=== PATIENT | male | born 1965 | race Caucasian/White ===

== ENCOUNTER 2021-05-30 12:57 | Day surgery (SDC) | payer BC ==
[~2021-05-30] VITALS: Ht 190.5 cm; Wt 115.7 kg
[2021-05-30] MEDS ORDERED: ATORVASTATIN CA40 MG PO (13:17)
[2021-05-30] MEDS ORDERED: FENOFIBRATE160 MG PO (13:18)
[2021-05-30] MEDS ORDERED: MULTI VITAMIN1 EACH PO (13:18)
[2021-05-30] MEDS ORDERED: D3-200050 MCG PO (13:18)
--- NOTE | 2021-05-30 15:42 | NUR ---
05/30/21 1542 Alexandra Cabrera 1537 PATIENT ARRIVES TO PACU AWAKE BUT DROWSY. RESP EVEN AND UNLABORED, NC AT 2 LITERS, SATS >92%. OXYGEN TURNED OFF. PATIENT RESTING QUIETLY WITH EYES CLOSED WHEN NOT STIMULATED.
--- NOTE | 2021-06-03 09:47 | PATH ---
[facility] [address] [place], [place] [address] Signed SPECIMEN(S): A COLON POLYP AT 60 CM SPECIMEN SOURCE: A. COLON POLYP AT 60 CM CLINICAL HISTORY: Screening. Post op: Polyp. MICROSCOPIC DESCRIPTION: Histologic sections of all submitted blocks are examined by light microscopy. These findings, together with the gross examination, support the pathologic diagnosis. FINAL PATHOLOGIC DIAGNOSIS: Colon, polyp at 60 cm, polypectomy: - Tubular adenoma. - Negative for high-grade dysplasia or malignancy. NAL:caw:C2NR GROSS DESCRIPTION: The specimen, labeled "BRANDAN, 1," and designated on the requisition "colon polyp at 60 cm," is received in formalin and consists of one stewart soft tissue fragment(s) that measure 0.6 cm in greatest dimension. The specimen is entirely submitted in cassette (A1). AT (under the direct supervision of a pathologist) The Gross Description was prepared using a voice recognition system. The report was reviewed for accuracy; however, sound-alike word errors, addition and/or deletions may occur. If there is any question about this report, please contact Client Services. PERFORMING LABORATORY: The technical component was performed by [employer], [address] [place] [address] (Refrigerator Tester: Liliane Riley MD; CLIA# [id number]). [facility] [address] [address] (CLIA# [id number]). Diagnostician: Carina Linn MD Pathologist Electronically Signed 06/03/2021 PATIENT NAME: BARBARA LEAL PATHOLOGY DATE OF : 65 REPORT #: [id number] PHYSICIAN: AJAY PATHOLOGY PCP: JAZZMINE DEL RIO MD REPORT IS CONFIDENTIAL AND NOT TO BE RELEASED WITHOUT AUTHORIZATION [address] [place], [place] [address] Signed Copies: ~ PATIENT NAME: BARBARA LEAL PATHOLOGY DATE OF : 65 REPORT #: [id number] PHYSICIAN: AJAY PATHOLOGY PCP: JAZZMINE DEL RIO MD REPORT IS CONFIDENTIAL AND NOT TO BE RELEASED WITHOUT AUTHORIZATION
--- NOTE | 2021-06-06 16:26 | OR ---
[facility] [address] [place], [place] [address] Signed DATE OF OPERATION: 05/30/2021 SURGEON: Barbara Hood MD PREOPERATIVE DIAGNOSIS: Colon surveillance. POSTOPERATIVE DIAGNOSIS: Left colon sessile polyp (excised). PROCEDURE: Total colonoscopy to cecum with cold snare polypectomy x1. ANESTHESIA: Intravenous sedation, fentanyl 150 mcg and Versed 5 mg. INDICATION: This 55-year-old white man is patient of Dr. Alejandre. He underwent colonoscopy for screening in 2001, which was normal except for internal hemorrhoids. He is asymptomatic at this time and has no family history of colon cancer. He is admitted to undergo surveillance colonoscopy, understand the risk of bleeding, infection, and perforation. FINDINGS: The prep was good. Complete colonoscopy was undertaken to the cecum without question. There was a sessile polyp at approximately 60 to 70 cm which was excised with cold snare technique, the remaining colon was normal. DESCRIPTION OF PROCEDURE: The patient was brought to the endoscopy suite and placed in lateral decubitus position, given intravenous sedation to the point of slurred speech and nystagmus. Digital rectal examination was normal. An Olympus video colonoscope was passed in the rectum and manipulated throughout the colon ultimately intubating the cecum itself. The ileocecal valve and appendiceal orifice were normal. The scope was withdrawn from that point. Examination throughout showed no sign of abnormality until approximately 60 to 70 cm from the anal verge in the left colon, a sessile type polyp. Narrow band imaging confirmed this likely to be adenomatous. The lesion was excised with cold snare technique without problem and the specimen passed for pathology. There was no sign of bleeding. The scope was withdrawn further and examination throughout showed no sign of other abnormality. Retroflexed Electronically Signed By: BARBARA HOOD MD 06/06/21 1626 PATIENT NAME: BARBARA LEAL OPERATIVE REPORT DATE OF : 65 REPORT #: [id number] PHYSICIAN: BARBARA HOOD MD PCP: JAZZMINE ALEJANDRE MD REPORT IS CONFIDENTIAL AND NOT TO BE RELEASED WITHOUT AUTHORIZATION [facility] [address] [place], [place] [address] Signed view was normal. Scope was removed and the patient was taken to the recovery room in good condition. CONCLUDING DIAGNOSES: Polyps x1. PLAN: Recommend repeat colonoscopy in 5 years based on the finding of the polyp. We will review his pathology report in this regard as well. He will return to the ongoing care of Dr. Alejandre. MD AGATHA Hammer/JOELL /[id number] cc: Jazzmine Alejandre MD Copies: JAZZMINE ALEJANDRE MD ~ Electronically Signed By: BARBARA HOOD MD 06/06/21 1626 PATIENT NAME: BARBARA LEAL OPERATIVE REPORT DATE OF : 65 REPORT #: [id number] PHYSICIAN: BARBARA HOOD MD PCP: JAZZMINE ALEJANDRE MD REPORT IS CONFIDENTIAL AND NOT TO BE RELEASED WITHOUT AUTHORIZATION
== END 2021-05-30 16:25 | disposition home or self-care (01) ==
LOC: OPS 12:57 → DS 13:00 → OPS 14:00 → DS 14:00 → OPS 16:25
PROVIDERS: ATTEND Surgery
PROC: 0DBE8ZZ Excision of Large Intestine, Via Natural or Artificial Opening Endoscopic (ICD-10-PCS; principal; 2021-05-30 14:00)
DX: Z12.11 Encounter for screening for malignant neoplasm of colon (principal); D12.4 Benign neoplasm of descending colon; E78.5 Hyperlipidemia, unspecified
CPT/HCPCS: 99153; G0500; J2250; J3010; J7121

== ENCOUNTER 2022-03-26 08:58 | Inpatient (IN) | payer BC ==
[~2022-03-26] VITALS: Ht 190.5 cm; Wt 115.3 kg
[~2022-03-26 08:58] MED LIST: ATORVASTATIN CA40 MG PO; D3-200050 MCG PO; FENOFIBRATE160 MG PO; MULTI VITAMIN1 EACH PO
[2022-03-26] MEDS ORDERED: ASPIRIN81 MG PO (11:34)
--- NOTE | 2022-03-27 05:43 | CONS ---
[facility] [address] [place], [place] [address] Signed DATE OF CONSULTATION: 03/26/2022 CHIEF COMPLAINT: Right upper quadrant abdominal pain. HISTORY OF PRESENT ILLNESS: Barbara is a 56-year-old gentleman, who earlier this morning had a 4/10 right upper quadrant abdominal pain. He came to the emergency room for evaluation. He did have some nausea and vomiting. He was tender in the lateral right subcostal margin. White count was normal but the liver function tests were elevated along with the lipase. Ultrasound confirmed multiple tiny stones and sludge in his gallbladder. He had a positive Bautista sign. Common bile duct was unremarkable. No pericholecystic fluid. No mention of the gallbladder wall thickness. I have been asked to admit him as a general surgeon on-call for his gallstone pancreatitis. In the meantime, he has received Toradol, cefepime, and Flagyl and overall feels better. He has also had some vertigo over the last several months and has been working with his primary care provider. He had an echocardiogram done several weeks ago and we are going to track that down. I think overall his heart is probably fine. Dr. Valarie Emmanuel is his client services specialist. PAST MEDICAL HISTORY: 1. Kidney stones. 2. Hypercholesterolemia. 3. Vertigo. PAST SURGICAL HISTORY: Includes adrenalectomy. SOCIAL HISTORY: He does not smoke or drink. He is to his , Jazmín, at [phone]. They have three sons. 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 Onel Johnson is his primary care provider. Dr. Valarie Emmanuel is his client services specialist. FAMILY HISTORY: Mom and dad both had MIs. REVIEW OF SYSTEMS: He had 10 systems reviewed. There were no new additions. ALLERGIES: None. MEDICATIONS: 1. Atorvastatin. Electronically Signed By: CHAD VELAZQUEZ MD 03/27/22 0543 PATIENT NAME: BARBARA LEAL CONSULTATION DATE OF : 65 REPORT #: [id number] PHYSICIAN: CHAD VELAZQUEZ MD PCP: ONEL JOHNSON REPORT IS CONFIDENTIAL AND NOT TO BE RELEASED WITHOUT AUTHORIZATION [facility] [address] [place], [place] [address] Signed 2. Fenofibrate. 3. Vitamin D. 4. Multivitamin. 5. Aspirin. PHYSICAL EXAMINATION: VITAL SIGNS: Blood pressure 151/83, heart rate 82, respiratory rate 19, temperature is 98.2, he is 94% on room air. He is 6 feet 3 inches at 112 kg. GENERAL: Barbara is a 56-year-old gentleman, lying supine in his ER bed. His is with him. He is alert, awake, and interactive. LUNGS: Clear to auscultation bilaterally. HEART: Regular rate and rhythm without murmurs. ABDOMEN: Moderately protuberant, but generally soft. I can feel what probably is a top of his gallbladder out laterally underneath the right subcostal margin. It is tender in that area. LABORATORY DATA: White blood count 7.5, hemoglobin 15. BUN 20, creatinine 1.09, glucose 168. COVID negative. Urinalysis showed some bilirubin. Total bilirubin is 3.3, AST 273, ALT 522, alkaline phosphatase 138, albumin 4.2, lipase 9446. Echocardiogram report is pending. RADIOGRAPHIC STUDIES: Ultrasound is reviewed. He has multiple tiny stones with sludge in his gallbladder with a positive Bautista sign. Common bile duct is unremarkable. There is no pericholecystic fluid. No mention of the wall thickness. ASSESSMENT AND PLAN: Barbara is a 56-year-old gentleman, who presents with biliary pancreatitis. I reviewed that with Barbara and his in detail. We are going to admit him and treat him conservatively today. We will repeat the labs in the morning. We will continue his pain control and his IV antibiotics and his antiemetics. We will track down his echocardiogram report. They have expressed understanding and agreed with the above plan. Chad Velazquez MD ALB/MODL /[id number] Electronically Signed By: CHAD VELAZQUEZ MD 03/27/22 0543 PATIENT NAME: BARBARA LEAL CONSULTATION DATE OF : 65 REPORT #: [id number] PHYSICIAN: CHAD VELAZQUEZ MD PCP: ONEL JOHNSON REPORT IS CONFIDENTIAL AND NOT TO BE RELEASED WITHOUT AUTHORIZATION [facility] [address] [place], [place] [address] Signed cc: MD Onel Hale PA Copies: CHAD VELAZQUEZ MD, LINDA PA ~ Electronically Signed By: CHAD VELAZQUEZ MD 03/27/22 0543 PATIENT NAME: BARBARA LEAL CONSULTATION DATE OF : 65 REPORT #: [id number] PHYSICIAN: CHAD VELAZQUEZ MD PCP: ONEL JOHNSON REPORT IS CONFIDENTIAL AND NOT TO BE RELEASED WITHOUT AUTHORIZATION
--- NOTE | 2022-03-27 07:15 | EKG ---
[facility] [address] [place] [facility] [place] [address] Signed Sinus rhythm with premature supraventricular complexes Otherwise normal ECG No previous ECGs available Confirmed by UMM BEASLEY MD ([id number]) on 03/27/2022 7:15:23 AM Electronically Signed By: UMM BEASLEY MD 03/27/2215 PATIENT NAME: BARBARA LEAL Electrocardiogram DATE OF : 65 PHYSICIAN: UMM BEASLEY MD REPORT #: [id number] REPORT IS CONFIDENTIAL AND NOT TO BE RELEASED WITHOUT AUTHORIZATION
[2022-03-27] MEDS ORDERED: CLARITIN10 MG PO (14:07)
--- NOTE | 2022-03-30 08:30 | OR ---
[facility] [address] [place], [place] [address] Signed DATE OF OPERATION: 03/29/2022 SURGEON: Chad Velazquez MD PREOPERATIVE DIAGNOSES: 1. Biliary pancreatitis. 2. Cholecystitis with cholelithiasis. POSTOPERATIVE DIAGNOSES: 1. Biliary pancreatitis. 2. Cholecystitis with cholelithiasis. 3. Thickened gallbladder wall near fundus. PROCEDURES: 1. Laparoscopic cholecystectomy without intraoperative cholangiogram. 2. Placement of subhepatic drain. ESTIMATED BLOOD LOSS: 50 mL. FINDINGS: Barbara had most of his inflammatory changes down around the triangle of Calot. He also has his liver quite a bit up underneath the ribcage. His gallbladder was also very deep. It made the dissection quite a bit more difficult. We went bluntly with [place] and we still ran into some bleeding, which caused this to abandon our intraoperative cholangiogram. He does have a thickened gallbladder wall with cholesterolosis, but there is an area that is thickened near the fundus and we marked with a silk stitch for our pathologist. He also had multiple small stones of varying sizes in his gallbladder consistent with biliary pancreatitis. INDICATIONS: Barbara is a 56-year-old gentleman, who was having right upper quadrant and epigastric abdominal pain. He went to the emergency room for evaluation. White count was normal, but his liver function tests were elevated and the lipase was over 9000. Ultrasound confirmed multiple stones in the gallbladder with some sludge and what appeared to be a positive Bautista sign. The common bile duct was unremarkable. There is no pericholecystic fluid. I have been asked to admit him as a general surgeon on-call. He was admitted as above and treated conservatively and placed on cefepime and Flagyl. He rapidly returned his laboratory work back to normal over several days. He took on some fluid in the epigastric area and was quite full and distended. However, the last couple Electronically Signed By: CHAD VELAZQUEZ MD 03/30/22 0830 PATIENT NAME: BARBARA LEAL OPERATIVE REPORT DATE OF : 65 REPORT #: [id number] PHYSICIAN: CHAD VELAZQUEZ MD PCP: EVELYN COLMENARES REPORT IS CONFIDENTIAL AND NOT TO BE RELEASED WITHOUT AUTHORIZATION [facility] [address] [place], [place] [address] Signed of days he has really diuresed well and his abdominal exam is now markedly improved. I had met with Barbara and his each and every day. I brought them a brochure on the gallbladder. We had reviewed the location and function of the gallbladder. We reviewed laparoscopic versus open cholecystectomy. He understands that 20% of people have gallstones and then 20% of that group will need the gallbladder out because of symptoms. In that group 3 to 7% will have stones in the main bile duct. We therefore talked about intraoperative cholangiogram as well as possible ERCP as needed. He understands expected intraop and postop course. He understands that he has pancreatitis in addition to this gallbladder issue. We reviewed the risks including, but not limited to bleeding, infection, scarring, change in contour of the skin, damage to bowel, damage to main bile duct, incisional hernias and aggravation of pancreatitis and/or possible need for additional testing and/or procedures. He and his expressed understanding wished to proceed. PROCEDURE NOTE: Barbara was taken into our operating room and placed in the supine position under general endotracheal tube anesthesia. He was already on preoperative Lovenox as well as SCDs. He was on his preoperative antibiotics as well. He had been prepped and draped in the usual sterile fashion. All trocars were placed in their usual positions under direct visualization of the camera. We took several pictures for photodocumentation. We could see rather quickly that his liver was up underneath the ribcage. And then his gallbladder traveled quite a bit up underneath the liver itself. We therefore had an additional nurse scrub in and we added a fan retractor to hold the transverse colon and mesocolon down and out of the way of the triangle of Calot. It took a few minutes to carefully dissect out the triangle of Calot. We could see the lymph node of Calot as well. The cystic artery had blood just a little in the way it took a few minutes to judiciously placed two clips with the help of our suction as well. After that, we did not feel dissecting father down onto the cystic duct was warranted due the inflammatory changes. We went ahead and left just a very small bit of the gallbladder on the edge of the cystic duct and we divided that with the scissors. A clip had been placed across where the gallbladder joined the cystic duct and we added a PDS endoloop to secure that cystic duct stump. After this, the gallbladder was very carefully and slowly removed from the gallbladder fossa with the help of the cautery. Once the gallbladder was free was placed into an EndoCatch bag. The right upper quadrant was irrigated and suctioned out until clear. We used a #10 flat Niles drain and we brought it in the abdomen, placed in the subhepatic fossa and out the right most lateral subcostal 5 mm drain site. It was held in place with a 2-0 nylon suture. We then used our laparoscopic suturing device to pass 0-Vicryl suture on either side of the fascia of the subxiphoid trocar site as well as the mid epigastric trocar site. We tied those down to close the fascia primarily of those two trocar sites. After this, all the gas was allowed to escape and the remaining trocars were removed along with the gallbladder. The gallbladder was passed off the field by our circulating nurse. The gallbladder had been opened on the Electronically Signed By: CHAD VELAZQUEZ MD 03/30/22 0830 PATIENT NAME: BARBARA LEAL OPERATIVE REPORT DATE OF : 65 REPORT #: [id number] PHYSICIAN: CHAD VELAZQUEZ MD PCP: EVELYN COLMENARES REPORT IS CONFIDENTIAL AND NOT TO BE RELEASED WITHOUT AUTHORIZATION [facility] [address] [place], [place] [address] Signed back table. We had felt the thickened area just below the fundus of the gallbladder while we were working and we marked that with a silk stitch for pathology department to review. We noted the cholesterolosis along with multiple small gallstones and very thick bile. We then used interrupted 0 Vicryl suture to close the fascia of the supraumbilical trocar site. This was all tied down to close the fascia primarily. Local anesthetic was injected into all the trocar sites. The skin and dermis of these each trocar site were closed with interrupted 3-0 subcuticular Monocryl sutures. A single Steri-Strip was placed across the medial 5 mm right subcostal trocar site in order to bring the skin together. Dry gauze and tape were then applied to the incisions. Barbara was awakened from his anesthesia, extubated in the OR, and taken to recovery room in stable condition. Chad Velazquez MD ALB/MODL /[id number] cc: MD Evelyn Hale PA Copies: CHAD VELAZQUEZ MD, LINDA PA ~ Electronically Signed By: CHAD VELAZQUEZ MD 03/30/22 0830 PATIENT NAME: BARBARA LEAL OPERATIVE REPORT DATE OF : 65 REPORT #: [id number] PHYSICIAN: CHAD VELAZQUEZ MD PCP: EVELYN COLMENARES REPORT IS CONFIDENTIAL AND NOT TO BE RELEASED WITHOUT AUTHORIZATION
[2022-03-30] MEDS ORDERED: HYDROCODON-ACE1 EAC8 PO (10:35)
[2022-03-30] MEDS ORDERED: IBUPROFEN400 MG PO (10:38)
[2022-03-30] MEDS ORDERED: COLACE100 MG PO (10:42)
--- NOTE | 2022-03-31 05:53 | DS ---
[facility] [address] [place], [place] [address] Signed ADMISSION DATE: 03/26/2022 DISCHARGE DATE: 03/29/2022 FINAL DIAGNOSIS: Biliary pancreatitis. PROCEDURES: 1. Laparoscopic cholecystectomy without intraoperative cholangiogram. 2. Drain placement. HISTORY OF PRESENT ILLNESS: Barbara is a 56-year-old gentleman, who was having significant right upper quadrant abdominal pain. He came to the emergency room for evaluation. His white count was normal, where his liver function tests was elevated as well as the lipase. Ultrasound showed multiple small stones with some sludge. He seemed to have a positive Bautista sign. Common bile duct was unremarkable. There was no pericholecystic fluid. I had been asked to admit him as a general surgeon on-call. HOSPITAL COURSE: Barbara was admitted as above and started on cefepime and Flagyl along with IV fluids and made n.p.o. He rapidly returned his blood work to normal. He had taken a fair amount of fluid in his epigastrium from the IV fluids; however, by the 29 of March that had markedly improved. His bilirubin of course had returned to normal, but he was still a little jaundiced. I had brought brochures to the hospital and gone over that with Barbara and his in great detail my previous medical assistance as well. He was little concerned because he has been through a laparoscopic adrenalectomy over in [place], [place]. Of course, that was quite involved. We took him to surgery then on 03/29/2022 for his laparoscopic cholecystectomy. He had quite a bit the inflammatory changes as we came down to the cystic duct in the triangle of Calot. We had some bleeding, which is common with all the inflammation. We therefore stopped any additional dissection down along the cystic duct and we decided to abandon his intraoperative cholangiogram. In addition, he is a large man, 6 feet 3 inches tall and his liver has been quite a way up underneath the rib cage and as is common, the gallbladder was deep underneath his gallbladder. We thought it was just on the safer side to proceed without the intraoperative cholangiogram. We did secure the cystic duct stump with a PDS Endoloop along with a clip. We also placed a subhepatic drain. This morning, there was a thin serosanguineous fluid. He did well overnight and this morning. He looks and feels much better. He is tolerating his full liquid diet. He has had a little flatus. He said he already has Colace and MiraLAX at home, and he is very familiar with that idea relative to his narcotics and constipation. He said he would like to go home. Electronically Signed By: CHAD VELAZQUEZ MD 03/31/22 0553 PATIENT NAME: BARBARA LEAL DISCHARGE SUMMARY DATE OF : 65 REPORT #: [id number] PHYSICIAN: CHAD VELAZQUEZ MD PCP: ONEL COLMENARES REPORT IS CONFIDENTIAL AND NOT TO BE RELEASED WITHOUT AUTHORIZATION [facility] [address] [place] [address] Signed DISCHARGE PLANS AND MEDICATIONS: Barbara will be discharged home with a prescription for [place] 10/325 one tablet p.o. q.6 hours p.r.n. for severe postoperative pain, dispense 30 tablets with no refills. He can use Tylenol and ibuprofen really for [id number] postoperative pain, that can be purchased [id number]. He said he already has Colace and MiraLAX at home as needed for constipation, if he needs more, he can purchase that [id number]. He is going to resume the aspirin in one week from the date of the surgery. He can resume all his other chronic medications today. He is going to follow a full liquid diet today and as he feels better advance the diet to regular. We are going to leave all his incisions open to air. We will teach him and his of routine drain care. He will shower and bathe as usual right over the drain and all his incisions. I have asked him not to do any heavy pushing, pulling, or lifting over 20 pounds. Otherwise, he can perform his activities of daily living including walking up and down stairs and showering bathing as usual. He can start driving once he is off the narcotics. I will have him back in the office in about a week or so for followup. We will remove the drain at that time. He is welcome to stay off work for a week or so to recover mainly from the pancreatitis. He and his have expressed understanding and agreed with the above plan. MD GEORGE Hale/JOELL /[id number] cc: MD Valarie Hale DO Linda Harries, PA Patient Chart Copies: CHAD VELAZQUEZ MD Electronically Signed By: CHAD VELAZQUEZ MD 03/31/22 0553 PATIENT NAME: BARBARA LEAL DISCHARGE SUMMARY DATE OF : 65 REPORT #: [id number] PHYSICIAN: CHAD VELAZQUEZ MD PCP: ONEL COLMENARES REPORT IS CONFIDENTIAL AND NOT TO BE RELEASED WITHOUT AUTHORIZATION [address] [address] Signed ONEL COLMENARES ~ Electronically Signed By: CHAD VELAZQUEZ MD 03/31/22 0553 PATIENT NAME: BARBARA LEAL DISCHARGE SUMMARY DATE OF : 65 REPORT #: [id number] PHYSICIAN: CHAD VELAZQUEZ MD PCP: ONEL COLMENARES REPORT IS CONFIDENTIAL AND NOT TO BE RELEASED WITHOUT AUTHORIZATION
--- NOTE | 2022-04-09 11:38 | PATH ---
[facility] [address], [place] [address] Signed SPECIMEN(S): A GALLBLADDER WITH STONES SPECIMEN SOURCE: A. GALLBLADDER WITH STONES CLINICAL HISTORY: Cholecystitis with calculi, pancreatitis. Suture paul thickened area of gallbladder. FINAL PATHOLOGIC DIAGNOSIS: Gallbladder, cholecystectomy: - Chronic cholecystitis with focal low-grade dysplasia. - Cholelithiasis. COMMENT: The entire thickened area designated by the surgeon was submitted. The majority of this represents an area of mucosal outpouching with Rokitansky-Aschoff sinuses. Focally within wall of the designated area is a cystically dilated gland with mucinous metaplasia and low-grade dysplasia. The gallbladder was subsequently extensively sampled and no high grade dysplasia or malignancy was identified. This case was reviewed by multiple members of our pathology staff with subspecialty training in gastrointestinal pathology (BAO, CAMERON). NAL:cml:C2NR MICROSCOPIC EXAMINATION: Histologic sections of all submitted blocks are examined by light microscopy. These findings, together with the gross examination, support the pathologic diagnosis. GROSS DESCRIPTION: The specimen, labeled "BRANDAN, A," and designated on the requisition "gallbladder with stones, suture paul thickened area of gallbladder," is received in formalin and consists of Specimen: Previously opened gallbladder. Dimensions: 9.4 x 5.8 x 1.3 cm. Serosa: [place] smooth. Serosa and hepatic bed are inked blue. Cystic Duct: Unobstructed, margin inked black and shaved. Calculi: Multiple black, irregularly shaped calculi (2.0 x 1.0 x 1.0 cm in aggregate). Mucosa: Green and velvety. There is a suture marking the thickened area per PATIENT NAME: BARBARA LELA PATHOLOGY DATE OF : 65 REPORT #: [id number] PHYSICIAN: AJAY PETTY PCP: ONEL COLMENARES REPORT IS CONFIDENTIAL AND NOT TO BE RELEASED WITHOUT AUTHORIZATION [facility] [address], [place] [address] Signed the requisition. The suture is located 2.7 cm from the cystic duct margin. Wall thickness: 0.4-1.1 cm. Lymph node: No pericystic lymph nodes are grossly identified. Additional: There is a subserosal nodule within the fundus (1.5 x 1.0 x 0.9 cm) located 8.2 cm from the cystic duct margin. The nodule is serially sectioned to reveal a pink-stewart, firm to cystic cut surface. [employer] sections are submitted as follows: (A1) Cystic duct margin, shaved (A2-A4) Entire nodule (A5-A6) Sutured area (A7) Additional gallbladder wall AC (under the direct supervision of a pathologist) Additional sections are submitted as follows at the request of Dr. Linn: (A8) firm wall, 1 (A 9) firm wall, 2 (A 10) cyst (A 11) indurated, 1 (A 12) indurated, 2 AC (under the direct supervision of a pathologist) The Gross Description was prepared using a voice recognition system. The report was reviewed for accuracy; however, sound-alike word errors, addition and/or deletions may occur. If there is any question about this report, please contact Client Services. PERFORMING LABORATORY: The technical component was performed by [facility], [address] [place] [id number] (CLIA# [id number]). Professional interpretation was performed by [facility], [facility], [address] [address] (CLIA# [id number]). Diagnostician: Carina Linn MD Pathologist Electronically Signed 04/09/2022 Copies: ~ PATIENT NAME: BARBARA LEAL PATHOLOGY DATE OF : 65 REPORT #: [id number] PHYSICIAN: AJAY PATHOLOGY PCP: ONEL COLMENARES REPORT IS CONFIDENTIAL AND NOT TO BE RELEASED WITHOUT AUTHORIZATION
== END 2022-03-30 17:10 | disposition home or self-care (01) | DRG 419 ==
LOC: ED 08:58 → MS 09:00
PROVIDERS: ADMIT Colon & Rectal Surgery; ATTEND Colon & Rectal Surgery
PROC: 0FT44ZZ Resection of Gallbladder, Percutaneous Endoscopic Approach (ICD-10-PCS; principal; 2022-03-29 12:30)
DX: K85.10 Biliary acute pancreatitis without necrosis or infection (principal); E87.6 Hypokalemia; Z20.822 Contact with and (suspected) exposure to COVID-19; E88.09 Other disorders of plasma-protein metabolism, not elsewhere classified; E83.42 Hypomagnesemia; E78.00 Pure hypercholesterolemia, unspecified; Z87.442 Personal history of urinary calculi; Z98.890 Other specified postprocedural states; Z79.82 Long term (current) use of aspirin; Z79.899 Other long term (current) drug therapy
CPT/HCPCS: 00790; 36415; 76705; 80053; 81001; 83690; 83735; 84100; 85025; 87502; 93005; 93010; 94762; 96361; 96374; 96375; 96376; 99285-25; A9270; C9113; C9803; J0692; J1100; J1170; J1644; J1650; J1885; J2001; J2405; J2550; J2704; J3010; J3475; J3480; J7030; J7060; J7121; U0003